=== PATIENT | male | born 2000 | race Caucasian/White ===

== ENCOUNTER 2020-03-29 16:04 | Outpatient (CLI) | payer BC, SELFPAY ==
--- NOTE | 2020-03-29 16:17 | XR_ITS ---
WS: [id number] Exam: XR thoracic spine 3V* [id number] Date/Time of Exam: 03/29/2020 4:17 PM Reason For Exam: t-spine pain Findings: In the AP projection, the thoracic spine is straight. In the lateral projection, the thoracic curve is well maintained. The intervertebral disc spaces are intact. No fractures or anomalies of the tho racic spine are noted. XR/XR thoracic spine 3V* [id number] IMPRESSION: Negative thoracic spine.
== END 2020-03-29 16:05 | disposition home or self-care (01) ==
LOC: LAB 16:08
PROVIDERS: PCP Emergency Medicine; Visit Provider Emergency Medicine
DX: M54.6 Pain in thoracic spine (principal)
CPT/HCPCS: 72072

== ENCOUNTER 2020-04-08 06:00 | Outpatient (RCR) | payer BC, SELFPAY | END 2020-04-29 23:59 | disposition home or self-care (01) | LOC: MPT 06:00 | PROVIDERS: Referring Provider Emergency Medicine; Visit Provider Emergency Medicine | DX: M54.9 Dorsalgia, unspecified (principal) | CPT/HCPCS: 97110; 97161 ==

== ENCOUNTER → 2021-06-26 13:45 | Outpatient (BNVA) | payer OTHER, BC, SELFPAY | PROVIDERS: Visit Provider Emergency Medicine | DX: Z20.822 Contact with and (suspected) exposure to COVID-19 (principal) | CPT/HCPCS: 87635 ==

== ENCOUNTER → 2021-08-25 15:32 | Outpatient (BNVA) | payer BC, SELFPAY | PROVIDERS: Visit Provider Nurse Practitioner Family | DX: R53.83 Other fatigue (principal); R06.83 Snoring | CPT/HCPCS: 80053; 82306; 82607; 84443; 85025 ==

== ENCOUNTER → 2022-05-05 11:04 | Outpatient (BNVA) | payer BC, SELFPAY | PROVIDERS: Visit Provider Emergency Medicine | DX: R68.89 Other general symptoms and signs (principal); J10.1 Influenza due to other identified influenza virus with other respiratory manifestations | CPT/HCPCS: 87400 ==